=== PATIENT | female | born 2000 | race Caucasian/White ===

== ENCOUNTER 2022-01-02 17:25 | Emergency (ER) | payer BC, SELFPAY ==
[2022-01-02 17:27] VITALS: BP 111/75; PULSE 66; RESP 15; TEMP 37.1; O2SAT 100; BMI 23.8
--- NOTE | 2022-01-02 18:29 | EDS_ITS ---
HPI History of Present Illness Chief Complaint: Head Injury Narrative Narrative: 21-year-old female presents with her sports centre manager for postconcussive syndrome symptoms. She states that she was playing basketball on Saturday of last week, 7 days ago, and she fell and hit her head. There was no loss of consciousness. She has had intermittent nausea and headaches and sharp pain on the top of her head. She denies any paresthesias. She is currently on the protocol for head injury that is established by the [place] [employer] [place] for their athletes. She presents mainly because she is having left ear pain also with this. She denies any fevers or chills. No drainage from her ear. She presents for evaluation because she had a concussion in February of this year where she did not play basketball for a month, and this is her third concussion. PFSH PFS Medical History no medical history Allergy/AdvReac Type Severity Reaction Status Date / Time No Known Allergies Allergy Verified 01/02/22 17:27 Social History Smoking Status: Unknown if ever smoked ROS ROS ED ROS Narrative Constitutional: No fever, no chills. HEENT: No sore throat. No neck pain. No loss of vision. No rhinorrhea. Left ear pain Cardiovascular: No chest pain. No palpitations. No pedal edema. Respiratory: No cough, no shortness of breath. Abdominal: No abdominal pain. Intermittent nausea. No vomiting currently. Genitourinary: No dysuria. No hematuria. Musculoskeletal: No myalgias. No arthralgias. Neurologic: Positive headaches. No dizziness. No lightheadedness. Skin: No rash. No change in color. Psychiatric: No depression. No anxiety. EXAM Physical Exam Narrative Exam Narrative: Afebrile. Vital signs noted. HEENT: Normocephalic. Atraumatic. PERRL, EOMI. Neck soft and supple. No point tenderness or step off. TMs clear bilaterally. No evidence of erythema or bulging TM. No mastoid tenderness. No pain with movement of auricle. Cardiovascular: Regular rate and rhythm. No murmurs, rubs, or gallops appreciated. Respiratory: No tachypnea. Lungs clear to auscultation bilaterally. Gastrointestinal: Abdomen soft, nontender, with normoactive bowel sounds. No rebound or guarding. Neurological: Awake. Alert. Oriented x3. Nonfocal, nonlateralizing. Able to raise arms above head without difficulty. Skin: No rash. Normal color. No pallor. Musculoskeletal: No pedal edema. Full range of motion extremities. Const Vital Signs: 01/02/22 17:27 01/02/22 17:54 Temperature 98.8 F Temperature Source Temporal Pulse Rate 66 Respiratory Rate 15 Respiratory Effort Normal Non-Labored Respiratory Depth Normal Respiratory Pattern Normal Blood Pressure 111/75 Blood Pressure Mean 87 Pulse Ox 100 Oxygen Delivery Method Room Air MDM MDM MDM Narrative Medical decision making narrative: Patient's injury was 7 days remote, and there was no loss of consciousness. I do not feel that emergent CT imaging is indicated. She was instructed on brain rest. Additionally, treatment be symptomatic. She declined needing antinausea medication. She is here with her it trainer who states that she is currently on the protocol for head injury athletes. They will follow-up with Dr. Linares with sports medicine. She was told that as this is her third concussion and she is having ongoing symptoms, that she may need referral to neurology and outpatient MRI imaging in the future. At this point in time, I feel she can be discharged safely home with follow-up. Return instructions to the emergency department were reviewed. Disposition is discharged home in stable condition. Discharge Plan Triage Chief Complaint: Head Injury ED Provider: Hans Mathis Dx/Rx/DC Orders Clinical Impression: Post concussion syndrome, Ear pain, left Primary Care Provider: Care Physician,No Primary Referrals: Care Physician,No Primary [Primary Care Provider] - Activity Restrictions/Additional Instructions: Do not return to playing basketball until your symptoms resolve and then you are cleared by sports medicineDr. Linares. Continue the postconcussive protocol established at the [facility]. Disposition Disposition: Home, Self Care
== END 2022-01-02 18:37 | disposition home or self-care (01) ==
PROVIDERS: Emergency Provider Emergency Medicine; Visit Provider Emergency Medicine
DX: F07.81 Postconcussional syndrome (principal); H92.02 Otalgia, left ear
CPT/HCPCS: 99282

== ENCOUNTER 2022-05-27 22:00 | Emergency (ER) | payer BC, SELFPAY ==
[2022-05-27 22:01] VITALS: BP 126/79; PULSE 65; RESP 16; TEMP 36.7; O2SAT 97; BMI 22.8
--- NOTE | 2022-05-27 22:14 | EDS_ITS ---
HPI History of Present Illness Chief Complaint: Back Informant: patient Narrative Narrative: Patient states 2 days ago, she was doing lifts in the gym, and shortly afterwards she had soreness across her low back. She states she was not surprised because she has not done them in a long time, and she thinks she started with too much weight for as much time off as she took. 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 It is Saturday night Easter. She drove home 4.5 hours and just got back and after getting out of the car she was so stiff and sore that she presents for evaluation. Now the pain is localized to the left low back. She denies any urinary symptoms, bowel or bladder dysfunction, radiation into the legs. Hurts more to move better to remain still right now. She has not taken any medication for this. [facility] Medical History Back injury Allergy/AdvReac Type Severity Reaction Status Date / Time No Known Allergies Allergy Verified 01/02/22 17:27 Social History Smoking Status: Never smoker ROS ROS ED Constitutional Constitutional ED: Denies chills or fever(s) Gastrointestinal Gastrointestinal: Denies abdominal pain, constipation, fecal incontinence, n ausea or vomiting Genitourinary Genitourinary ED: Reports other Details: no urinary retention ; Denies abdominal discomfort or urinary incontinence Musculoskeletal Musculoskeletal: Reports as per HPI and back pain; Denies neck pain Integumentary Denies rash or wounds Neurologic Neurologic: Denies headache(s), paresthesias or weakness EXAM Physical Exam Const Vital Signs: 05/27/22 22:01 Temperature 98.1 F Temperature Source Temporal Pulse Rate 65 Respiratory Rate 16 Blood Pressure 126/79 H Blood Pressure Mean 94 Pulse Ox 97 Oxygen Delivery Method Room Air Positive well nourished and well developed General Appearance ED: well developed and NAD HEENT Negative for trauma or tenderness Eyes PERRL and EOMs intact bilaterally Neck full ROM and supple GI normal to inspection, nondistended, normoactive bowel sounds, soft to palpation and non-tender Back/Spine normal to inspection Lumbar Spine / Lower Back: ROM limited, paraspinal muscle tenderness and straight leg raise negative bilaterally; Negative for lumbar spinal tenderness Extremity normal to inspection, full ROM and no pedal edema Neuro oriented x3 and no sensory deficits noted Sensorium / Orientation: alert Motor Exam: strength 5/5 throughout and clonus absent Deep Tendon Reflexes: Rt Patellar (L4): 2+, Lt Patellar (L4): 2+, Rt Ankle (S1): 2+ and Lt Ankle (S1): 2+ Deep Tendon Reflexes Back: Rt Patellar (L4): 2+, Lt Patellar (L4): 2+, Rt Ankle (S1): 2+ and Lt Ankle (S1): 2+ Plantar Reflex: Downgoing: bilateral Psych mental status grossly normal and thought process normal Skin no rashes or lesions noted and no wounds MDM MDM MDM Narrative Medical decision making narrative: Patient is tender in the left lumbosacral paraspinal musculature only, well above the pelvic brim and not including any bony areas or the SI joints, this is all much lower than the costovertebral angle, and she has no bony spinal tenderness. Negative straight leg raises, reassured that this is all very like ly just myofascial strain. She was given Toradol and Norflex and reassured, given instructions for supportive care and follow-up as needed Discharge Plan Triage Chief Complaint: Back ED Provider: Mihir Llanes Dx/Rx/DC Orders Clinical Impression: Acute lumbosacral myofascial strain Instructions: ED Back Sprain/Strain Primary Care Provider: URSULA CRUZ [facility] 1 Week if not improving Care Physician,No Primary [Non-Staff] - Disposition Disposition: Home, Self Care Discharge Date/Time: 05/27/22 22:56
[2022-05-27] MEDS: Orphenadrine 60 MG/2 ML Ampul IM (22:18)
[2022-05-27] MEDS: Ketorolac 60 MG/2 ML Vial IM (22:18)
== END 2022-05-27 22:56 | disposition home or self-care (01) ==
LOC: ED 22:17
PROVIDERS: Emergency Provider Emergency Medicine; Visit Provider Emergency Medicine
DX: S39.012A Strain of muscle, fascia and tendon of lower back, initial encounter (principal); X50.0XXA Overexertion from strenuous movement or load, initial encounter; Y92.39 Other specified sports and athletic area as the place of occurrence of the external cause
CPT/HCPCS: 96372; 99282